=== PATIENT | male | born 1960 | race Caucasian/White ===

== ENCOUNTER 2017-11-13 21:17 | Emergency (ER) | payer MEDICARE, MEDICAID ==
[~2017-11-13] VITALS: Ht 180.3 cm; Wt 86.4 kg
[2017-11-13 21:22] VITALS: BP 168/90; PULSE 88; RESP 18; TEMP 98.5; O2SAT 97
[2017-11-13 22:15] LABS: AUTOMATED NEUTROPHIL # 1.3 TH/MM3 (1.8-7.7); BASOPHIL % 0.7 % (0.0-2.0); EOSINOPHIL # 0.1 TH/MM3 (0-0.4); HEMATOCRIT 37.4 % (39.0-51.0); HEMOGLOBIN 12.8 GM/DL (13.0-17.0); LYMPH % 41.8 % (9.0-44.0); LYMPHOCYTE # 1.4 TH/MM3 (1.0-4.8); MEAN CELL VOLUME 97.4 FL (80.0-100.0); MEAN CORPUSCULAR HEMOGLOBIN 33.3 PG (27.0-34.0); MEAN CORPUSCULAR HGB CONC 34.1 % (32.0-36.0); MEAN PLATELET VOLUME 10.9 FL (7.0-11.0); MONO % 13.3 % (0.0-8.0); MONOCYTE # 0.4 TH/MM3 (0-0.9); NEUT % 41.2 % (16.0-70.0); PLATELET COUNT 73 TH/MM3 (150-450); RED BLOOD COUNT 3.83 MIL/MM3 (4.50-5.90); WHITE BLOOD COUNT 3.2 TH/MM3 (4.0-11.0)
[2017-11-13 22:32] LABS: INTERNATIONAL NORMALIZED RATIO 1.1 RATIO; PROTHROMBIN TIME - PATIENT 11.3 SEC (9.8-11.6)
[2017-11-13] MEDS ORDERED: MORP60TA61 PO (22:35)
[2017-11-13] MEDS ORDERED: GABA300C5 PO (22:35)
[2017-11-13 22:42] LABS: BICARBONATE 29.1 MEQ/L (21.0-32.0); CALCIUM 8.5 MG/DL (8.5-10.1); CREATININE 0.8 MG/DL (0.60-1.30)
[2017-11-13 22:58] LABS: OVALOCYTES 1+ (NORMAL)
--- NOTE | 2017-11-13 23:15 | PD ---
HPI Chief Complaint: Pain: Acute or Chronic Time Seen by Provider: 23:05 Travel History International Travel<30 days: No Contact w/Intl Traveler<30days: No Traveled to known affect area: No History of Present Illness HPI 57-year-old male here complaining of left leg pain. Patient states that his leg "gave out" and he fell asleep on his left leg earlier today. Pain is moderate, constant, worse with movement and ambulation. Upon entering into the patient's room he was asleep, yet easily arousable. He has a prescription of 60 mg of morphine that he takes twice daily for chronic pain. No history of DVT or PE. No chest pain or dyspnea. PFSH Past Medical History Diminished Hearing: No Tetanus Vaccination: < 5 Years Influenza Vaccination: No Social History Alcohol Use: No Tobacco Use: No Substance Use: No Allergies-Medications (Allergen,Severity, Reaction): Coded Allergies: ivermectin (Verified Allergy, Intermediate, 11/13/17) legs swell Reported Meds & Prescriptions Reported Meds & Active Scripts Active Reported Morphabond ER 12 HR (Morphine Sulfate) 60 Mg Tab 60 Mg PO Q12H Gabapentin 300 Mg Cap 300 Mg PO TID Review of Systems Except as stated in HPI: all other systems reviewed are Neg Physical Exam Narrative GENERAL: Well-developed, well-nourished, drowsy, easily arousable, no apparent distress. SKIN: Focused skin assessment warm/dry. Well-healed surgical scars around left knee. HEAD: Atraumatic. Normocephalic. EYES: Pupils equal and round. No scleral icterus. No injection or drainage. ENT: No nasal bleeding or discharge. Mucous membranes pink and moist. NECK: Trachea midline. No JVD. CARDIOVASCULAR: Regular rate and rhythm. No murmurs. Bilateral dorsalis pedis pulses are brisk and equal. RESPIRATORY: No accessory muscle use. Clear to auscultation. Breath sounds equal bilaterally. GASTROINTESTINAL: Abdomen soft, non-tender, nondistended. MUSCULOSKELETAL: No obvious deformities. No clubbing. No cyanosis. Moderate bilateral lower extremity edema with left slightly greater than right. All compartments in bilateral lower extremities are supple and mildly tender. No obvious deformities. Normal range of motion. NEUROLOGICAL: Awake and alert. No obvious cranial nerve deficits. Motor grossly within normal limits. Normal speech. PSYCHIATRIC: Appropriate mood and affect; insight and judgment normal. Data Data Last Documented VS Vital Signs Date Time Temp Pulse Resp B/P (MAP) Pulse Ox O2 Delivery O2 Flow Rate FiO2 11/13/17 21:22 98.5 88 18 168/90 (116) 97 Orders Orders Complete Blood Count With Diff (11/13/17 21:25) Basic Metabolic Panel (Bmp) (11/13/17 21:25) Act Partial Throm Time (Ptt) (11/13/17 21:25) Prothrombin Time / Inr (Pt) (11/13/17 21:25) Hepatic Functional Panel (11/13/17 23:11) Us Leg Venous Doppler (11/13/17 ) Tibia/Fibula (Ap/Lat) (11/13/17 ) Labs Laboratory Tests Test 11/13/17 21:45 White Blood Count 3.2 TH/MM3 Red Blood Count 3.83 MIL/MM3 Hemoglobin 12.8 GM/DL Hematocrit 37.4 % Mean Corpuscular Volume 97.4 FL Mean Corpuscular Hemoglobin 33.3 PG Mean Corpuscular Hemoglobin Concent 34.1 % Red Cell Distribution Width 14.0 % Platelet Count 73 TH/MM3 Mean Platelet Volume 10.9 FL Neutrophils (%) (Auto) 41.2 % Lymphocytes (%) (Auto) 41.8 % Monocytes (%) (Auto) 13.3 % Eosinophils (%) (Auto) 3.0 % Basophils (%) (Auto) 0.7 % Neutrophils # (Auto) 1.3 TH/MM3 Lymphocytes # (Auto) 1.4 TH/MM3 Monocytes # (Auto) 0.4 TH/MM3 Eosinophils # (Auto) 0.1 TH/MM3 Basophils # (Auto) 0.0 TH/MM3 CBC Comment AUTO DIFF Differential Comment AUTO DIFF CONFIRMED Platelet Estimate LOW Platelet Morphology Comment NORMAL Ovalocytes 1+ Prothrombin Time 11.3 SEC Prothromb Time International Ratio 1.1 RATIO Activated Partial Thromboplast Time 31.7 SEC Blood Urea Nitrogen 11 MG/DL Creatinine 0.80 MG/DL Random Glucose 74 MG/DL Calcium Level 8.5 MG/DL Sodium Level 140 MEQ/L Potassium Level 4.3 MEQ/L Chloride Level 106 MEQ/L Carbon Dioxide Level 29.1 MEQ/L Anion Gap 5 MEQ/L Estimat Glomerular Filtration Rate 99 ML/MIN Total Bilirubin 0.4 MG/DL Direct Bilirubin 0.2 MG/DL Indirect Bilirubin 0.2 MG/DL Aspartate Amino Transf (AST/SGOT) 79 U/L Alanine Aminotransferase (ALT/SGPT) 50 U/L Alkaline Phosphatase 106 U/L Total Protein 7.4 GM/DL Albumin 3.5 GM/DL MDM Medical Decision Making Medical Screen Exam Complete: Yes Emergency Medical Condition: Yes Medical Record Reviewed: Yes Differential Diagnosis DVT, leg contusion, compartment syndrome unlikely Narrative Course Vital signs show heart rate 88, blood pressure 168/90, pulse ox 97% on room air , oral temp of 98.5F. CBC: WBC 3.2, hemoglobin 12.8, hematocrit 37.4, platelets 73. CMP is remarkable for AST 79, otherwise unremarkable. Left tib-fib x-ray: CONCLUSION: 1. Findings characteristic of prior ACL repair. 2. Otherwise negative. No fracture. No soft tissue radiopaque foreign body Left lower extremity venous duplex: CONCLUSION: Negative exam. No sonographic or Doppler findings of deep venous thrombosis. The patient is ambulatory in the emergency department without difficulty and without assistance. On reassessment he is sleeping comfortably. All compartments in bilateral lower extremities are supple. Left lower extremity is neurovascularly intact. Patient reports history of hepatitis C and acknowledges history of leukopenia and thrombocytopenia. At this point the patient is stable for discharge home with outpatient follow-up with a primary care physician this week. He was advised on when to return to the emergency department. He verbalizes understanding and agreement with plan. Diagnosis Primary Impression: Left leg pain Referrals: [facility] 3 days Primary Care Physician 3 days Additional Instructions: Follow-up with a primary care physician this week. Return to the emergency department for worsening symptoms or any other concerns. Disposition: DISCHARGE HOME Condition: Stable Neno Blake MD Nov 13, 2017 23:15
[2017-11-13 23:31] LABS: ALBUMIN 3.5 GM/DL (3.4-5.0); DIRECT BILIRUBIN ADULT 0.2 MG/DL (0.0-0.2)
[2017-11-13 23:32] LABS: INDIRECT BILIRUBIN 0.2 MG/DL (0.0-0.8); TOTAL BILIRUBIN ADULT 0.4 MG/DL (0.2-1.0); TOTAL PROTEIN 7.4 GM/DL (6.4-8.2)
--- NOTE | 2017-11-13 23:56 | RADRPT ---
EXAM DATE/TIME: 11/13/2017 23:22 [facility] COMPARISON: No previous studies available for comparison. INDICATIONS : Swelling to left lower leg. MEDICAL HISTORY : None. SURGICAL HISTORY : ACL repair. ENCOUNTER: Initial ACUITY: 1 day PAIN SCORE: 5/10 LOCATION: Left tib fib FINDINGS: Two view examination of the left tibia demonstrates no evidence of fracture or dislocation. Bony min eralization is normal. Osseous screw in the proximal tibia characteristic of a prior ACL repair. The soft tissue structures are intact. CONCLUSION: 1. Findings characteristic of prior ACL repair. 2. Otherwise negative. No fracture. No soft tissue radiopaque foreign body Julian Vivar MD on November 13, 2017 at 23:54 Board Certified Radiologist. This report was verified electronically.
--- NOTE | 2017-11-14 00:02 | RADRPT ---
EXAM DATE/TIME: 11/13/2017 23:26 [facility] COMPARISON: No previous studies available for comparison. INDICATIONS : Left leg pain. MEDICAL HISTORY : Left leg pain x 1 year. SURGICAL HISTORY : Orthopedic Surgery - Left Knee ACL repair. ENCOUNTER: Initial ACUITY: 1 year PAIN SCORE: 2/10 LOCATION: Left leg. TECHNIQUE: Venous ultrasound of the leg was performed from the inguinal ligament to the proximal calf. Real-chris e, color Doppler and spectral tracing, compression and augmentation techniques were used. FINDINGS: There is normal compressibility of the deep venous system from the inguinal region to the proximal ca lf. No echogenic clot is seen in the lumen of the common femoral, femoral, popliteal, and posterior tibial veins. There is a normal response of the venous system to proximal and distal augmentation an d respiration. CONCLUSION: Negative exam. No sonographic or Doppler findings of deep venous thrombosis. Julian Vivar MD on November 14, 2017 at 0:00 Board Certified Radiologist. This report was verified electronically.
== END 2017-11-14 00:36 | disposition home or self-care (01) ==
LOC: NEPD 21:17
DX: M79.605 Pain in left leg (principal); G89.29 Other chronic pain
CPT/HCPCS: 73590; 80048; 80076; 85025; 85610; 85730; 93971; 99285